=== PATIENT | male | born 1985 | race Caucasian/White ===

== ENCOUNTER → 2019-01-19 | Outpatient (CLI) | payer OTHER ==
--- NOTE | 2019-01-19 15:48 | KCIC ---
MR of the right thigh without contrast HISTORY: Right thigh pain at the ischial tuberosity. Injury 10 months ago. TECHNIQUE: Routine multiplanar sequences are obtained through the proximal thigh. FINDINGS: Mild heterogeneous signal within the right proximal hamstring tendon compatible with mild tendinosis, with a small linear low-grade partial tear at the footplate attachment, less than 50%. There is marrow edema within the subjacent ischium. No high-grade detachment or hematoma. Muscle tissue intact. The visualized femur is intact. No abnormal fluid collection. IMPRESSION: Mild tendinosis with a small low-grade tear at the hamstring tendon attachment. Electronically signed by: Amado Resendiz MD (01/19/2019 3:45 PM) [id number]
== END | disposition home or self-care (01) ==
LOC: KCIC MRI 11:39
DX: S76.811A Strain of other specified muscles, fascia and tendons at thigh level, right thigh, initial encounter (principal); X58.XXXA Exposure to other specified factors, initial encounter; Y93.89 Activity, other specified; Y92.89 Other specified places as the place of occurrence of the external cause; Y99.8 Other external cause status
CPT/HCPCS: 73718